=== PATIENT | male | born 1970 | race Caucasian/White ===

== ENCOUNTER 2017-05-27 08:30 | Emergency (ER) | payer OTHER ==
[2017-05-27] MEDS ORDERED: Ibuprofen TAB* 600 MG PO ONE (10:05)
--- NOTE | 2017-05-27 10:28 | ED ---
Upper Extremity Pain - HPI Summary HPI Summary: Rt hand dominant pt here w/ Rt shoulder pain x past few days. Noticed upon waking one morning - felt sore and trapezius m tight. Can't lift above 45 degrees w/o pain and weakness. Has pain in shoulder w/ moving Rt elbow and validation leader is not as strong. No neck pain or injury. 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 Elbow is not bothering him now nor are any other areas beyond Rt shoulder. Denies numbness, tingling. Better at rest. Has not tried anything for pain re: PO meds as well as heat/ice, topical analgesics. No recent steroid, fluouroquinolone use and no statins. - History of Current Complaint Chief Complaint: [email or web address] Stated Complaint: RT ARM/SHOULDER PAIN Time Seen by Provider: 05/27/17 09:40 Hx Obtained From: Patient - Allergies/Home Medications Allergies/Adverse Reactions: Allergies Allergy/AdvReac Type Severity Reaction Status Date / Time No Known Allergies Allergy Verified 10/03/13 09:17 PMH/Surg Hx/FS Hx/Imm Hx Previously Healthy: Yes Endocrine/Hematology History: Denies: Hx Anticoagulant Therapy, Hx Blood Disorders, Autoimmune Disease Musculoskeletal History: Reports: Other Musculoskeletal History - Rt elbow issues since hyperextension as a child Infectious Disease History: No Infectious Disease History: Denies: Traveled Outside the [place] in Last 30 Days - Family History Known Family History: Positive: None - Social History Occupation: Employed Full-time Lives: With Family Alcohol Use: Rare Hx Substance Use: No Substance Use Type: Reports: None Hx Tobacco Use: Yes Smoking Status (MU): Current Every Day Smoker Amount Used/How Often: 1PPD Review of Systems Constitutional: Negative Negative: Fever, Chills, Fatigue Cardiovascular: Negative Negative: Chest Pain Respiratory: Negative Negative: Shortness Of Breath Gastrointestinal: Negative Positive: no symptoms reported Musculoskeletal: Other - see HPI Skin: Negative Neurological: Other - see HPI Psychological: Normal All Other Systems Reviewed And Are Negative: Yes Physical Exam Triage Information Reviewed: Yes Vital Signs On Initial Exam: Initial Vitals Temp Pulse Resp BP Pulse Ox 99.1 F 78 17 158/138 97 05/27/17 08:41 05/27/17 08:41 05/27/17 08:41 05/27/17 08:41 05/27/17 08:41 Vital Signs Reviewed: Yes Appearance: Positive: Well-Appearing, No Pain Distress, Thin Skin: Positive: Warm, Dry - no erythema, no ecchymosis, no lesions over affected area Head/Face: Positive: Normal Head/Face Inspection Eyes: Positive: EOMI ENT: Positive: Hearing grossly normal Respiratory/Lung Sounds: Positive: Breath Sounds Present Cardiovascular: Positive: Pulses are Symmetrical in both Upper and Lower Extremities Musculoskeletal: Positive: Limited @ - Rt shoulder ROM limited to 45 degrees flexion and abduction - pt externally rotates to attempt flexion and abduction - crepitus is palpated at times; joint is TTP; Rt trapezius m is hypertonic and TTP; spinous pp NTTP. Negative: Strength/ROM Intact - Rt validation leader is 3.5/5 d/t pain ; Lt validation leader is 5/5 Neurological: Positive: Normal, Sensory/Motor Intact, Alert, Oriented to Person Place, Time, CN Intact II-III Psychiatric: Positive: Normal - Lisa Coma Scale Coma Scale Total: 15 Diagnostics - Vital Signs Vital Signs Temp Pulse Resp BP Pulse Ox 05/27/17 09:41 71 96 05/27/17 09:39 129/79 05/27/17 08:41 99.1 F 78 17 158/138 97 - Laboratory Lab Statement: Any lab studies that have been ordered have been reviewed, and results considered in the medical decision making process. Course/Dx - Course Course Of Treatment: Suspect rotator cuff injury w/ chronic overuse and clinical presentation. Sling, NSAID's, gentle stretches to prevent adhesive capsulitis. F/u w/ PCP for PT referral - if no relief w/ PT, consult ortho. DAnger s/sx reviewed. Pt agrees w/ plan. - Diagnoses Provider Diagnoses: Right shoulder pain Discharge - Discharge Plan Condition: Stable Disposition: HOME Patient Education Materials: Rotator Cuff Injury (ED) Referrals: Adonis Aceves NP [Primary Care Provider] - Sunil Edmondson MD [Medical Doctor] - Additional Instructions: Rest, alternate ice and heat over affected area Try NSAID's with food for pain - these are ibuprofen or naproxen - take with food - do not take both, pick one. You may also take tylenol for pain. Use sling to help with pain but also remove arm to gently stretch throughout the day to prevent "frozen shoulder" Follow-up with PCP for referral to PT - if no improvement, you may benefit from orthopedic consult. Contact provided here. *If you develop numbness, weakness or coolness of extremity, return to ED
--- NOTE | 2017-05-27 10:44 | RAD ---
INDICATION: Right shoulder pain COMPARISON: None TECHNIQUE: Routine frontal, Y and axial views were obtained. FINDINGS: The bony structures, joint spaces, and soft tissues are normal for age. IMPRESSION: NEGATIVE EXAMINATION.
[2017-05-27 11:29] VITALS: BP 135/89
== END 2017-05-27 11:28 | disposition home or self-care (01) ==
LOC: ED 08:30
DX: M25.511 Pain in right shoulder (principal); F17.210 Nicotine dependence, cigarettes, uncomplicated
CPT/HCPCS: 99282; A9270-GY